=== PATIENT | male | born 1950 ===

== ENCOUNTER 2022-04-25 06:00 | Outpatient (RCR) | payer MEDICARE, MEDICAID, SELFPAY | END 2022-05-12 23:59 | disposition home or self-care (01) | LOC: SST 06:00 | PROVIDERS: Referring Provider Internal Medicine Geriatric Medicine; Visit Provider Internal Medicine Geriatric Medicine | DX: Z46.89 Encounter for fitting and adjustment of other specified devices (principal); R47.9 Unspecified speech disturbances | CPT/HCPCS: 92607; 92608 ==